=== PATIENT | female | born 1950 | race Caucasian/White ===

== ENCOUNTER → 2020-11-17 | Outpatient (CLI) | payer MEDICARE, OTHER ==
--- NOTE | 2020-11-19 20:19 | RAD ---
DATE: 11/17/2020 EXAM: MAMMO GRETCHEN SCREENING BILATERAL HISTORY: Screening COMPARISON: 07/25/2019, 07/10/2016, 03/11/2017 This study was interpreted with the benefit of Computerized Aided Detection (CAD). Breast Density: SCATTERED The breast parenchyma shows scattered fibroglandular densities. Breast parenchyma level B. FINDINGS: No suspicious mass, architectural distortion, or calcifications in either breast. A focal asymmetry in the lower outer left breast is unchanged from 2017. IMPRESSION: No evidence of malignancy. BI-RADS CATEGORY: 2 BENIGN FINDING(S) RECOMMENDED FOLLOW-UP: 12M 12 MONTH FOLLOW-UP PQRS compliance statement: Patient information was entered into a reminder system with a target due date for the next mammogram. Mammography is a sensitive method for finding small breast cancers, but it does not detect them all and is not a substitute for careful clinical examination. A negative mammogram does not negate a clinically suspicious finding and should not result in delay in biopsying a clinically suspicious abnormality. "Our facility is accredited by the [employer] Mammography Program."
== END ==
LOC: MAMMO 10:59
PROVIDERS: ATTEND Family Medicine
DX: Z12.31 Encounter for screening mammogram for malignant neoplasm of breast (principal)
CPT/HCPCS: 77063; 77067

== ENCOUNTER → 2020-12-30 | Outpatient (CLI) | payer MEDICARE, OTHER ==
[~2020-12-30] MED LIST: IOHEXOL 240 MG/ML 50ML VIAL. ONE; IOHEXOL 240 MG/ML 50ML VIAL. PO ONE; IOHEXOL 300 MG/ML 75 ML VIAL. IV ONE
[2020-12-30 11:17] LABS: CREATININE 0.7 mg/dL (0.6-1.0); GFR 82.7
--- NOTE | 2020-12-30 17:15 | RAD ---
EXAM: CT Abdomen and Pelvis with IV contrast INDICATION: Reason: RLQ PAIN / Spl. Instructions: OMNI 300 75ML IV AND OMNI 240 30ML ORAL / History: TECHNIQUE: Multi-detector row CT images were acquired from the lung bases through the abdomen and pel vis with the use of IV contrast. Sagittal and coronal images were acquired from the transaxial data. All CT scans performed at this facility utilize dose optimization techniques as appropriate to the ex am, including the following: Automated exposure control and adjustment of the mA and/or KV according to patient size (this includes techniques or standardized protocols for targeted exams where dose is indication/reason for exam). IV CONTRAST: Administered ORAL CONTRAST: None COMPARISON: 12/04/[address] with IV contrast. FINDINGS: LOWER CHEST: Unremarkable LIVER: Unremarkable BILIARY SYSTEM: Gallbladder is surgically absent. Bile ducts are not dilated. PANCREAS: Unremarkable SPLEEN: Unremarkable ADRENALS: Unremarkable KIDNEYS & URETERS: A 9 mm superior pole right renal cyst is newly apparent but shows no suspicious f eatures and requires no additional imaging follow-up. Kidneys otherwise are unremarkable. BLADDER: Unremarkable REPRODUCTIVE ORGANS: Unremarkable GASTROINTESTINAL: Subtle hyperemia in the pericolonic mesentery in the cecum. The stomach, small geoffrey l, and colon are otherwise unremarkable. The appendix is not well seen but there are no findings of a cute appendicitis. MESENTERY/PERITONEUM/RETROPERITONEUM: Unremarkable VASCULAR: Scattered arterial calcifications in abdominal aorta without aneurysmal dilation or eviden ce of flow-limiting stenosis. LYMPH NODES: No adenopathy OSSEOUS & SOFT TISSUES: Unremarkable IMPRESSION: There is possible minimal pericolonic hyperemia in the mesentery around the cecum. No associated wall thickening. Correlate for any evidence of colitis and consider close follow-up if symptoms persist o r worsen. No specific cause for right lower quadrant abdominal pain is otherwise identified on contr ast enhanced CT. The appendix is not well seen but there are no findings suggestive of acute appendic itis. Electronically signed by: Sin Velazquez MD (12/30/2020 5:12 PM) [id number]
== END ==
LOC: CT 10:28
PROVIDERS: ATTEND Family Medicine
DX: N28.1 Cyst of kidney, acquired (principal); K31.89 Other diseases of stomach and duodenum; Z90.49 Acquired absence of other specified parts of digestive tract
CPT/HCPCS: 36415; 74177; 82565; 84520; Q9967